=== PATIENT | male | born 1935 | race African-American/Black ===

== ENCOUNTER 2018-05-06 10:38 | Outpatient (CLI) | END 2018-05-06 10:39 | disposition home or self-care (01) | LOC: NONPT 10:38 | PROVIDERS: ATTEND Internal Medicine | DX: R30.0 Dysuria (principal) | CPT/HCPCS: 81001; 87086 ==

== ENCOUNTER 2018-06-16 14:49 | Outpatient (CLI) | END 2018-06-16 15:19 | disposition hospice, home (50) | LOC: AMBL 14:49 | PROVIDERS: ATTEND Emergency Medicine | DX: N39.0 Urinary tract infection, site not specified (principal); G20 Parkinson's disease; F02.80 Dementia in other diseases classified elsewhere, unspecified severity, without behavioral disturbance, psychotic disturbance, mood disturbance, and anxiety; Z87.440 Personal history of urinary (tract) infections ==